=== PATIENT | male | born 1965 | race African-American/Black ===

== ENCOUNTER 2024-06-17 20:42 | Emergency (ER) | payer BC ==
[2024-06-17 21:01] VITALS: BP 152/100; PULSE 78; RESP 18; TEMP 97.9; BMI 23.5
[2024-06-17] MEDS ORDERED: MECLIZINE HCL 25 MG TABLET (FP) ONE (22:53)
[2024-06-17] MEDS ORDERED: ACETAMINOPHEN 325 MG TABLET (FP) ONE (22:54)
[2024-06-17] MEDS: MECLIZINE HCL 25 MG TABLET (FP) PO ONE (23:19)
[2024-06-17] MEDS: ACETAMINOPHEN 325 MG TABLET (FP) PO ONE (23:19)
== END 2024-06-17 23:37 | disposition home or self-care (01) ==
LOC: JER 20:42
DX: R42 Dizziness and giddiness (principal)
CPT/HCPCS: 82962; 99283-25